=== PATIENT | male | born 1960 | race Caucasian/White ===

== ENCOUNTER 2024-01-19 16:10 | Inpatient (IN) | payer OTHER ==
[~2024-01-19] VITALS: Ht 177.8 cm; Wt 86.2 kg
[~2024-01-19 16:10] MED LIST: ALBU90OI INH; DOXY100 PO; HYDGUAL120
[2024-01-19] MEDS ORDERED: Ondansetron HCl 2 MG / ML 2ML Vial IV ONE (17:45)
[2024-01-19] MEDS ORDERED: Morphine Sulfate 4 MG/1 ML Injection IV ONE (17:45)
[2024-01-19] MEDS ORDERED: HYDROmorphone HCl/Pf 1MG SYR IV ONE ×2 (18:15→19:45)
[2024-01-19] MEDS ORDERED: Diphth,Pertuss(Acell),Tet Vac 0.5 ML VIAL IM ONE ×2 (18:15→20:55)
[2024-01-19] MEDS ORDERED: HYDROmorphone HCl/Pf 1MG SYR ONE (19:35)
[2024-01-19] MEDS ORDERED: Ketorolac Tromethamine 30mg Vial IV ONE (20:20)
[2024-01-19] MEDS ORDERED: HYDROmorphone HCl/Pf 1MG SYR IV PRN ×2 (20:20→22:50)
[2024-01-19 20:37] LABS: BASOPHILS ABSOLUTE AUTO 0.05 K/mm3 (0.00-0.23); BASOPHILS PERCENT AUTO 0 % (0-2); EOSINOPHILS ABSOLUTE AUTO 0.08 K/mm3 (0.00-0.68); EOSINOPHILS PERCENT AUTO 1 % (0-6); Hematocrit 38.8 % (37.0-53.0); Hemoglobin 12.8 g/dL (13.5-17.5); IMMATURE GRAN ABSOLUTE AUTO 0.08 K/mm3 (0.00-0.10); IMMATURE GRAN PERCENT AUTO 1 % (0-1); LYMPHOCYTES ABSOLUTE AUTO 1.31 K/mm3 (0.84-5.20); LYMPHOCYTES PERCENT AUTO 9 % (21-46); MONOCYTES ABSOLUTE AUTO 0.86 K/mm3 (0.16-1.47); MONOCYTES PERCENT AUTO 6 % (4-13); Mean Corpuscular Volume 82 fL (80-100); Mean Platelet Volume 10.4 fL (9.1-12.4); NEUTROPHILS ABSOLUTE AUTO 12.77 K/mm3 (1.96-9.15); NEUTROPHILS PERCENT AUTO 84 % (41-73); Platelet Count 183 K/mm3 (150-400); RDW Coefficient Variation 14.4 % (11.7-14.2); RDW Standard Deviation 43.2 fL (35.1-46.3); Red Blood Cell Count 4.74 M/mm3 (4.30-5.90); White Blood Cell Count 15.15 K/mm3 (4.00-11.30)
[2024-01-19 20:57] LABS: Alanine Aminotransfer (ALT/SGP 68 U/L (12-78); Albumin, Blood 3.9 g/dL (3.4-5.0); Alk Phos 62 U/L (50-136); Anion Gap 10 mmol/L (3-11); Aspartate Aminotrans (AST/SGOT 73 U/L (12-37); Bilirubin, Total 0.3 mg/dL (0.1-1.0); Blood Urea Nitrogen 12 mg/dL (8-24); Bun/Creatinine Ratio 13.2 (12.0-20.0); CO2, Blood 29 mmol/L (21-32); Calcium, Blood 9.4 mg/dL (8.5-10.1); Chloride, Blood 107 mmol/L (98-108); Creatinine, Blood 0.91 mg/dL (0.60-1.20); Ethanol (Alcohol), Blood, Med <3 mg/dL; Glomerular Filtration Rate 94 (60-); Glucose, Blood 109 mg/dL (70-99); Potassium, Blood 3.7 mmol/L (3.5-5.5); Sodium, Blood 142 mmol/L (136-145); Total Protein, Blood 7.9 g/dL (6.4-8.2)
[2024-01-19 21:15] LABS: International Normalized Ratio 1.08; Prothrombin Time Results 11.5 Sec (9.7-11.5)
[2024-01-19] MEDS ORDERED: Famotidine 20 MG Tab PO ONE (22:30)
[2024-01-19] MEDS ORDERED: Mag Hydrox/AL Hydrox/Simeth 30 ML UDC PO ONE (22:30)
[2024-01-19] MEDS ORDERED: Acetaminophen 325 MG TABLET PO PRN (22:50)
[2024-01-19] MEDS ORDERED: Ondansetron HCl 2 MG / ML 2ML Vial IV PRN (22:50)
[2024-01-19] MEDS ORDERED: HYDROcodone 5-APAP 325 TAB PO PRN (22:50)
[2024-01-19 23:05] LABS: U Amphetamine Screen Not Detected; U Barbituate Screen Not Detected; U Benzodiazapine Screen Not Detected; U Buprenorphine Screen Not Detected; U Cannabinoids Screen Not Detected; U Cocaine Screen Not Detected; U Methadone Screen Not Detected; U Methamphetamine Screen Not Detected; U Opiates Screen DETECTED; U Oxycodone Screen Not Detected; U Phencyclidine Screen Not Detected
[2024-01-20] MEDS ORDERED: Ketorolac Tromethamine 30mg Vial IV SCH
[2024-01-20 01:16] VITALS: BP 133/84
[2024-01-20] MEDS ORDERED: ADVIL PM (01:27)
--- NOTE | 2024-01-20 02:11 | NUR ---
ADMIT PT ARRIVAL TO UNIT WITH SPOUSE AT SIDE. PT VERY PAINFUL WITH MOVEMENT. R SHOULDER IN SLING, RLE SPLINTED, AND MULTIPLE R SIDED RIB FXS WITH CHEST TUBE IN PLACE. CHEST TUBE PLACED TO WALL SUCTION PER ORDERS. LUNG SOUNDS DIMINISHED TO R SIDE. PLACED ON 2L O2 VIA NC TO MAINTAIN SATS >90%. CONT BIOX IN PLACE. DILAUDID GIVEN PER ORDERS FOR PAIN MANAGEMENT. NPO UNTIL ORTHO CONSULT COMPLETE. ORIENTED TO ROOM, CALL LIGHT, AND TREATMENT PLAN. PT AND VERB AN UNDERSTANDING.
[2024-01-20 04:06] VITALS: BP 125/73
--- NOTE | 2024-01-20 05:40 | NUR ---
SHIFT SUMMARY NO ACUTE CHANGES SINCE ADMIT. CHEST TUBE TO WALL SUCTION AT -20CM. ON 2L VIA NC TO MAINTAIN SATS >90%. CONT BIOX IN PLACE. DILAUDID + TORADOL FOR PAIN MANAGEMENT. RUE REMAINS IN SLING AND RLE REMAINS SPLINTED. PER ER DOCUMENTATION, NO EXPECTED ORTHO PROCEDURES TODAY. CALL LIGHT WITHIN REACH.
[2024-01-20 07:20] VITALS: BP 129/73
--- NOTE | 2024-01-20 08:47 | NUR ---
CHEST TUBE TO WATER SEAL
[2024-01-20] MEDS ORDERED: Lidocaine 4% 1 Patch TOP SCH (09:00)
--- NOTE | 2024-01-20 12:33 | NUR ---
NO CHANGES IN WOB. SPEAKING IN FULL SENTENCES, LAUGHS w/ FAMILY w/ NO CHANGE IN WOB.
[2024-01-20 14:25] VITALS: BP 124/73
--- NOTE | 2024-01-20 18:29 | NUR ---
SHIFT SUMMARY PT HAS DONE WELL TODAY. TOLERATED CT TO WATER SEAL, OOB x 2 THIS SHIFT, & INCREASE IN PAIN w/ MOVEMENT, MOSTLY OF RUE. RLE UNCHANGED.
[2024-01-20 19:20] VITALS: BP 121/63
--- NOTE | 2024-01-20 23:32 | NUR ---
CHEST TUBE CHEST TUBE CLAMPED PER ORDERS. PT TOLERATING AT THIS TIME. PT INSTRUCTED TO NOTIFY RN OF ANY SOB, OR CHEST PAIN WITH TUBE CLAMPED.
[2024-01-21 04:57] VITALS: BP 142/78
--- NOTE | 2024-01-21 05:55 | NUR ---
SHIFT SUMMARY NO ACUTE CHANGES TO REPORT OVERNIGHT. PT HAS RESTED MOST OF THE NIGHT. CHEST TUBE CLAMPED PER ORDERS, AND PT TOLERATED T/O THE NIGHT. MAINTAINING SATS IN THE 90'S. PT SATS DROPPED TO THE UPPER 80'S A FEW TIMES, BUT EPISODES WERE VERY BRIEF, AND OVERALL PT HAS BEEN ABLE TO MAINTAIN SATS IN THE 90'S ON RA. RESP E/U, PT DENIES ANY SOB, OR CHEST PAIN. R LEG REMAINS SPLINTED AND WNL. RIGHT ARM IN SLING FOR MOST OF THE NIGHT, UNTIL THIS AM. PT STATED THAT SLING WAS CAUSING N/T IN HIS HANDS SO HE REMOVED IT. PT STATES THAT HE DOES NOT WANT TO WEAR THE SLING AT THIS TIME, AND WILL PUT IT BACK ON LATER TODAY. PT STATES THAT N/T SUBSIDED WITH THE ABSENCE OF THE SLING. VITALS ARE STABLE. PT STATES THAT HE IS ONLY PAINFUL WITH MOVEMENT AND DECLINED SCHEDULED TORDADOL. BED IN LOWEST POSITION, CALL LIGHT WITHIN REACH.
[2024-01-21 07:43] VITALS: BP 149/83
[2024-01-21 08:10] VITALS: BP 127/75
[2024-01-21] MEDS ORDERED: TraMADol HCl 50 MG Tab PO PRN (08:50)
[2024-01-21 14:21] VITALS: BP 128/71
--- NOTE | 2024-01-21 19:12 | NUR ---
SHIFT SUMMARY PT A&OX4, VSS/RA, HERMELINDA PO, VOIDING/URINAL, AMB SBA TO WC/CHAIR/BED, PAIN MANAGED WITH TORADOL AND ULTRAM/LIDO PATCHES R SHOULDER, DRESSINGS CHANGED, CT REMOVED. WILL REPORT TO ONCOMING NOC RN.
[2024-01-21 19:26] VITALS: BP 157/81
[2024-01-21] MEDS ORDERED: Calcium Carbonate 500 MG Tab Chew PO PRN (21:55)
[2024-01-22 04:11] VITALS: BP 141/80
--- NOTE | 2024-01-22 06:21 | NUR ---
SHIFT SUMMARY PT HAS RESTED T/O THE NIGHT. PT PREFERS NOT TO BE WOKEN UP FOR TORADOL IF SLEEPING. PT DENIES PAIN T/O THE NIGHT WHEN ASKED. PT DRESSING TO RIGHT ARM AND SHOULDER C/D/I. CHEST TUBE REMOVED YESTERDAY, AND SITE WNL. PT DOES NOT REPORT N/T IN EXT. PT RESP E/U, DID REQUIRE 2L O2 DURING THE NIGHT, SATS DROPPED IN THE UPPER 80'S WHILE SLEEPING. ON 2L PT ABLE TO MAINTAIN SATS IN THE 90'S WHILE SLEEPING. VITALS ARE STABLE. NO ACUTE CHANGES OVERNIGHT. BED IN LOWEST POSITION, CALL LIGHT WITHIN REACH.
[2024-01-22 07:45] VITALS: BP 148/87
[2024-01-22] MEDS ORDERED: TRAM50 PO (11:09)
--- NOTE | 2024-01-22 13:42 | NUR ---
DISCHARGE PT A&OX4, VSS/RA, HERMELINDA PO, VOIDING, PAIN MANAGED, AMB SBA/TRANSFER TO CHAIR, WORKED WITH PT/OT, IV DC'D. DC INS PROVIDED. PT AND FAM REP UNDERSTANDING THOSE INSTRUCTIONS INCLUDING FU WITH ORTHO SURGEON UP [facility] RLE&RUE, HOME HEALTH, REP HAVING ALL EQUIP NECESSARY TO GO HOME. LEFT FLOOR VIA WC WITH ALL PERSONAL POSSESSIONS INCLUDING DC PACKET AND 1 NARC SCRIPT, TO GO HOME WITH FAMILY.
== END 2024-01-22 13:40 | disposition home health service (06) | DRG 200 ==
LOC: ER 16:10 → SURS 16:11
PROVIDERS: Student in an Organized Health Care Education/Training Program; ADMIT Surgery
PROC: 0W9930Z Drainage of Right Pleural Cavity with Drainage Device, Percutaneous Approach (ICD-10-PCS; principal; 2024-01-20)
PROC: 2W38X1Z Immobilization of Right Upper Extremity using Splint (ICD-10-PCS; 2024-01-20)
PROC: 2W3QX1Z Immobilization of Right Lower Leg using Splint (ICD-10-PCS; 2024-01-20)
DX: S27.0XXA Traumatic pneumothorax, initial encounter (principal); S22.41XA Multiple fractures of ribs, right side, initial encounter for closed fracture; S82.141A Displaced bicondylar fracture of right tibia, initial encounter for closed fracture; S09.90XA Unspecified injury of head, initial encounter; S42.111A Displaced fracture of body of scapula, right shoulder, initial encounter for closed fracture; Z79.891 Long term (current) use of opiate analgesic; Z79.899 Other long term (current) drug therapy; Z79.51 Long term (current) use of inhaled steroids; Z79.2 Long term (current) use of antibiotics; V29.99XA Rider (driver) (passenger) of other motorcycle injured in unspecified traffic accident, initial encounter
CPT/HCPCS: 32551; 70450; 71045; 71260; 72125; 73030; 73200; 73562-RT; 73590; 73700; 74177; 80053; 82947; 85025; 85610; 85730; 86850; 86900; 86901; 90471; 90715; 93005; 93010; 94762; 96374-59; 96375-59; 96376; 96376-59; 97110; 97162; 97166; 97530; 97535; 99285-25; A9270; G0378; J1170; J1885; J2270; J2405; Q9967

== ENCOUNTER 2025-05-10 14:03 | Day surgery (SDC) | payer OTHER ==
[~2025-05-10 14:03] MED LIST changes: +ADVIL PM; +CEPH500 PO; +CefTRIAXone Sodium 2,000 MG in NS 100 ML IV SCH; +SULTRIDS PO; +TRAM50 PO
[2025-05-10 14:45] VITALS: BP 130/80
[2025-05-10] MEDS ORDERED: CEFTRIAXONE2 G1 IV (14:48)
[2025-05-10] MEDS ORDERED: ACET500 PO (14:49)
== END 2025-05-10 15:08 | disposition home or self-care (01) ==
LOC: ATC 14:03
DX: M86.9 Osteomyelitis, unspecified (principal); Z87.891 Personal history of nicotine dependence
CPT/HCPCS: 96365; J0696

== ENCOUNTER 2025-05-11 01:14 | Day surgery (SDC) | payer OTHER ==
[~2025-05-11 01:14] MED LIST changes: +ACET500 PO; +CEFTRIAXONE2 G1 IV
[2025-05-11 09:40] VITALS: BP 127/88
== END 2025-05-11 10:05 | disposition home or self-care (01) ==
LOC: ATC 01:14
DX: M86.661 Other chronic osteomyelitis, right tibia and fibula (principal); G47.30 Sleep apnea, unspecified; Z87.891 Personal history of nicotine dependence
CPT/HCPCS: 96365; J0696

== ENCOUNTER 2025-05-12 00:57 | Day surgery (SDC) | payer OTHER ==
[~2025-05-12 00:57] MED LIST changes: -CefTRIAXone Sodium 2,000 MG in NS 100 ML IV SCH
[2025-05-12] MEDS ORDERED: CefTRIAXone Sodium 2,000 MG in NS 100 ML IV SCH (01:00)
[2025-05-12 09:38] VITALS: BP 140/85
== END 2025-05-12 09:58 | disposition home or self-care (01) ==
LOC: ATC 00:57
DX: M86.661 Other chronic osteomyelitis, right tibia and fibula (principal); Z87.891 Personal history of nicotine dependence
CPT/HCPCS: 96365; J0696

== ENCOUNTER 2025-05-13 07:40 | Day surgery (SDC) | payer OTHER ==
[~2025-05-13 07:40] MED LIST changes: +CefTRIAXone Sodium 2,000 MG in NS 100 ML IV SCH
[2025-05-13 09:33] VITALS: BP 151/92
== END 2025-05-13 10:08 | disposition home or self-care (01) ==
LOC: ATC 07:40
DX: M86.9 Osteomyelitis, unspecified (principal); Z87.891 Personal history of nicotine dependence
CPT/HCPCS: 96365; J0696

== ENCOUNTER 2025-05-14 00:32 | Day surgery (SDC) | payer OTHER ==
[~2025-05-14 00:32] MED LIST changes: -CefTRIAXone Sodium 2,000 MG in NS 100 ML IV SCH
[2025-05-14] MEDS ORDERED: CefTRIAXone Sodium 2,000 MG in NS 100 ML IV SCH (06:00)
[2025-05-14 09:35] VITALS: BP 130/91
== END 2025-05-14 10:00 | disposition home or self-care (01) ==
LOC: ATC 00:32
DX: M86.8X6 Other osteomyelitis, lower leg (principal); Z87.891 Personal history of nicotine dependence; Z79.2 Long term (current) use of antibiotics; Z79.82 Long term (current) use of aspirin
CPT/HCPCS: 96365; J0696

== ENCOUNTER 2025-05-15 00:10 | Day surgery (SDC) | payer OTHER ==
[2025-05-15] MEDS ORDERED: CefTRIAXone Sodium 2,000 MG in NS 100 ML IV SCH (06:00)
[2025-05-15 09:21] VITALS: BP 140/88
== END 2025-05-15 09:43 | disposition home or self-care (01) ==
LOC: ATC 00:10
DX: M86.8X6 Other osteomyelitis, lower leg (principal); Z87.891 Personal history of nicotine dependence; Z79.2 Long term (current) use of antibiotics; Z79.82 Long term (current) use of aspirin
CPT/HCPCS: 96365; J0696

== ENCOUNTER 2025-05-17 01:09 | Day surgery (SDC) | payer OTHER ==
[~2025-05-17 01:09] MED LIST changes: +CefTRIAXone Sodium 2,000 MG in NS 100 ML IV SCH
[2025-05-17 09:25] VITALS: BP 142/86
== END 2025-05-17 09:52 | disposition home or self-care (01) ==
LOC: ATC 01:09
DX: M86.9 Osteomyelitis, unspecified (principal); Z87.891 Personal history of nicotine dependence; Z79.899 Other long term (current) drug therapy
CPT/HCPCS: J0696

== ENCOUNTER 2025-05-18 00:43 | Day surgery (SDC) | payer OTHER ==
[~2025-05-18 00:43] MED LIST changes: -CefTRIAXone Sodium 2,000 MG in NS 100 ML IV SCH
[2025-05-18] MEDS ORDERED: CefTRIAXone Sodium 2,000 MG in NS 100 ML IV SCH (01:00)
[2025-05-18 09:39] VITALS: BP 131/77
== END 2025-05-18 10:03 | disposition home or self-care (01) ==
LOC: ATC 00:43
DX: M86.9 Osteomyelitis, unspecified (principal); Z87.891 Personal history of nicotine dependence
CPT/HCPCS: 96365; J0696

== ENCOUNTER 2025-05-20 01:23 | Day surgery (SDC) | payer OTHER ==
[~2025-05-20 01:23] MED LIST changes: +CefTRIAXone Sodium 2,000 MG in NS 100 ML IV SCH
[2025-05-20 09:36] VITALS: BP 143/86
== END 2025-05-20 09:57 | disposition home or self-care (01) ==
LOC: ATC 01:23
DX: M86.661 Other chronic osteomyelitis, right tibia and fibula (principal); Z87.891 Personal history of nicotine dependence
CPT/HCPCS: 96365; J0696

== ENCOUNTER 2025-05-21 00:58 | Day surgery (SDC) | payer OTHER ==
[~2025-05-21 00:58] MED LIST changes: -CefTRIAXone Sodium 2,000 MG in NS 100 ML IV SCH
[2025-05-21] MEDS ORDERED: CefTRIAXone Sodium 2,000 MG in NS 100 ML IV SCH (06:00)
[2025-05-21 09:41] VITALS: BP 130/93
== END 2025-05-21 09:55 | disposition home or self-care (01) ==
LOC: ATC 00:58
DX: M86.8X6 Other osteomyelitis, lower leg (principal); Z87.891 Personal history of nicotine dependence; Z79.2 Long term (current) use of antibiotics; Z79.82 Long term (current) use of aspirin; Z79.899 Other long term (current) drug therapy
CPT/HCPCS: 96365; J0696

== ENCOUNTER 2025-05-22 07:29 | Day surgery (SDC) | payer OTHER ==
[~2025-05-22 07:29] MED LIST changes: +CefTRIAXone Sodium 2,000 MG in NS 100 ML IV SCH
[2025-05-22 09:26] VITALS: BP 153/101
== END 2025-05-22 09:49 | disposition home or self-care (01) ==
LOC: ATC 07:29
DX: M86.8X6 Other osteomyelitis, lower leg (principal); Z87.891 Personal history of nicotine dependence; Z79.2 Long term (current) use of antibiotics; Z79.82 Long term (current) use of aspirin; Z79.899 Other long term (current) drug therapy
CPT/HCPCS: 96365; J0696

== ENCOUNTER 2025-05-23 00:10 | Day surgery (SDC) | payer OTHER ==
[~2025-05-23 00:10] MED LIST changes: -CefTRIAXone Sodium 2,000 MG in NS 100 ML IV SCH
[2025-05-23] MEDS ORDERED: CefTRIAXone Sodium 2,000 MG in NS 100 ML IV SCH (06:00)
[2025-05-23 09:49] VITALS: BP 126/89
[2025-05-23 11:34] LABS: BASOPHILS ABSOLUTE AUTO 0.04 K/mm3 (0.00-0.23); BASOPHILS PERCENT AUTO 1 % (0-2); EOSINOPHILS ABSOLUTE AUTO 0.31 K/mm3 (0.00-0.68); EOSINOPHILS PERCENT AUTO 5 % (0-6); Hematocrit 36.3 % (37.0-53.0); Hemoglobin 11.9 g/dL (13.5-17.5); IMMATURE GRAN ABSOLUTE AUTO 0.01 K/mm3 (0.00-0.10); IMMATURE GRAN PERCENT AUTO 0 % (0-1); LYMPHOCYTES ABSOLUTE AUTO 1.85 K/mm3 (0.84-5.20); LYMPHOCYTES PERCENT AUTO 31 % (21-46); MONOCYTES ABSOLUTE AUTO 0.68 K/mm3 (0.16-1.47); MONOCYTES PERCENT AUTO 11 % (4-13); Mean Corpuscular HGB Conc 32.8 g/dL (31.5-36.5); Mean Corpuscular Volume 81 fL (80-100); NEUTROPHILS ABSOLUTE AUTO 3.16 K/mm3 (1.96-9.15); NEUTROPHILS PERCENT AUTO 52 % (41-73); NRBC ABSOLUTE 0.00 K/mm3 (0.00-0.02); NRBC Auto 0.0 /100 WBC (0.0-0.2); Platelet Count 180 K/mm3 (150-400); RDW Coefficient Variation 14.6 % (11.7-14.2); RDW Standard Deviation 42.9 fL (35.1-46.3)
[2025-05-23 12:07] LABS: Alanine Aminotransfer (ALT/SGP 39.0 U/L (12-78); Albumin, Blood 3.5 g/dL (3.4-5.0); Albumin/Globulin Ratio 0.8 (0.8-1.8); Anion Gap 6.0 mmol/L (3-11); Aspartate Aminotrans (AST/SGOT 27.0 U/L (12-37); Bilirubin, Total 0.5 mg/dL (0.1-1.0); Blood Urea Nitrogen 8.0 mg/dL (8-24); C-REACTIVE PROTEIN, EXT RANGE 7.06 mg/dL (0.000-0.300); CO2, Blood 31.0 mmol/L (21-32); Calcium, Blood 9.8 mg/dL (8.5-10.1); Chloride, Blood 101.0 mmol/L (98-108); Creatinine, Blood 0.89 mg/dL (0.60-1.20); Globulin, Blood 4.4 g/dL (2.2-4.0); Glucose, Blood 93.0 mg/dL (70-99); Potassium, Blood 3.4 mmol/L (3.5-5.5); Sodium, Blood 135.0 mmol/L (136-145); Total Protein, Blood 7.9 g/dL (6.4-8.2)
== END 2025-05-23 10:17 | disposition home or self-care (01) ==
LOC: ATC 00:10
PROVIDERS: Internal Medicine
DX: M86.661 Other chronic osteomyelitis, right tibia and fibula (principal); Z87.891 Personal history of nicotine dependence
CPT/HCPCS: 80053; 85025; 86140; 96365; J0696

== ENCOUNTER 2025-05-24 09:31 | Day surgery (SDC) | payer OTHER ==
[~2025-05-24 09:31] MED LIST changes: +CefTRIAXone Sodium 2,000 MG in NS 100 ML IV SCH
[2025-05-24 09:42] VITALS: BP 155/87
== END 2025-05-24 10:04 | disposition home or self-care (01) ==
LOC: ATC 09:31
DX: M86.661 Other chronic osteomyelitis, right tibia and fibula (principal); G47.30 Sleep apnea, unspecified; Z87.891 Personal history of nicotine dependence
CPT/HCPCS: 96365; J0696

== ENCOUNTER 2025-05-25 00:50 | Day surgery (SDC) | payer OTHER ==
[~2025-05-25 00:50] MED LIST changes: -CefTRIAXone Sodium 2,000 MG in NS 100 ML IV SCH
[2025-05-25] MEDS ORDERED: CefTRIAXone Sodium 2,000 MG in NS 100 ML IV SCH (06:00)
[2025-05-25 09:34] VITALS: BP 134/81
== END 2025-05-25 10:00 | disposition home or self-care (01) ==
LOC: ATC 00:50
DX: M86.661 Other chronic osteomyelitis, right tibia and fibula (principal)
CPT/HCPCS: 96365; J0696

== ENCOUNTER 2025-05-26 03:17 | Day surgery (SDC) | payer OTHER ==
[2025-05-26] MEDS ORDERED: CefTRIAXone Sodium 2,000 MG in NS 100 ML IV SCH (06:00)
[2025-05-26 15:33] VITALS: BP 150/77
== END 2025-05-26 15:55 | disposition home or self-care (01) ==
LOC: ATC 03:17
DX: M86.8X6 Other osteomyelitis, lower leg (principal); Z87.891 Personal history of nicotine dependence; Z79.2 Long term (current) use of antibiotics; Z79.82 Long term (current) use of aspirin; Z79.899 Other long term (current) drug therapy
CPT/HCPCS: 96365; J0696

== ENCOUNTER 2025-05-27 08:08 | Day surgery (SDC) | payer OTHER ==
[~2025-05-27 08:08] MED LIST changes: +CefTRIAXone Sodium 2,000 MG in NS 100 ML IV SCH
[2025-05-27 09:49] VITALS: BP 141/90
== END 2025-05-27 10:11 | disposition home or self-care (01) ==
LOC: ATC 08:08
DX: M86.8X8 Other osteomyelitis, other site (principal); Z87.891 Personal history of nicotine dependence
CPT/HCPCS: 96365; J0696

== ENCOUNTER 2025-05-28 01:41 | Day surgery (SDC) | payer OTHER ==
[2025-05-28 09:40] VITALS: BP 158/99
== END 2025-05-28 10:02 | disposition home or self-care (01) ==
LOC: ATC 01:41
DX: M86.9 Osteomyelitis, unspecified (principal); T84.622A Infection and inflammatory reaction due to internal fixation device of right tibia, initial encounter; S82.141D Displaced bicondylar fracture of right tibia, subsequent encounter for closed fracture with routine healing; G47.30 Sleep apnea, unspecified; Y79.2 Prosthetic and other implants, materials and accessory orthopedic devices associated with adverse incidents; Z79.01 Long term (current) use of anticoagulants; Z87.891 Personal history of nicotine dependence
CPT/HCPCS: 96365; J0696

== ENCOUNTER 2025-05-29 00:31 | Day surgery (SDC) | payer OTHER ==
[~2025-05-29 00:31] MED LIST changes: -CefTRIAXone Sodium 2,000 MG in NS 100 ML IV SCH
[2025-05-29] MEDS ORDERED: CefTRIAXone Sodium 2,000 MG in NS 100 ML IV SCH (01:00)
[2025-05-29 09:40] VITALS: BP 152/94
== END 2025-05-29 10:05 | disposition home or self-care (01) ==
LOC: ATC 00:31
DX: M86.8X6 Other osteomyelitis, lower leg (principal); G47.30 Sleep apnea, unspecified; Z87.891 Personal history of nicotine dependence; Z79.2 Long term (current) use of antibiotics; Z79.82 Long term (current) use of aspirin; Z79.899 Other long term (current) drug therapy
CPT/HCPCS: 96365; J0696

== ENCOUNTER 2025-05-30 03:53 | Day surgery (SDC) | payer OTHER ==
[~2025-05-30 03:53] MED LIST changes: +CefTRIAXone Sodium 2,000 MG in NS 100 ML IV SCH
[2025-05-30 09:50] VITALS: BP 134/81
[2025-05-30 10:12] LABS: BASOPHILS ABSOLUTE AUTO 0.06 K/mm3 (0.00-0.23); BASOPHILS PERCENT AUTO 1 % (0-2); EOSINOPHILS ABSOLUTE AUTO 0.37 K/mm3 (0.00-0.68); EOSINOPHILS PERCENT AUTO 6 % (0-6); Hematocrit 37.1 % (37.0-53.0); Hemoglobin 12.0 g/dL (13.5-17.5); IMMATURE GRAN ABSOLUTE AUTO 0.02 K/mm3 (0.00-0.10); IMMATURE GRAN PERCENT AUTO 0 % (0-1); LYMPHOCYTES ABSOLUTE AUTO 1.97 K/mm3 (0.84-5.20); LYMPHOCYTES PERCENT AUTO 33 % (21-46); MONOCYTES ABSOLUTE AUTO 0.43 K/mm3 (0.16-1.47); MONOCYTES PERCENT AUTO 7 % (4-13); Mean Corpuscular HGB Conc 32.3 g/dL (31.5-36.5); Mean Corpuscular Volume 82 fL (80-100); NEUTROPHILS ABSOLUTE AUTO 3.05 K/mm3 (1.96-9.15); NEUTROPHILS PERCENT AUTO 52 % (41-73); NRBC ABSOLUTE 0.00 K/mm3 (0.00-0.02); NRBC Auto 0.0 /100 WBC (0.0-0.2); Platelet Count 239 K/mm3 (150-400); RDW Coefficient Variation 14.6 % (11.7-14.2); RDW Standard Deviation 42.6 fL (35.1-46.3)
[2025-05-30 10:35] LABS: Alanine Aminotransfer (ALT/SGP 35.0 U/L (12-78); Albumin, Blood 3.6 g/dL (3.4-5.0); Albumin/Globulin Ratio 0.8 (0.8-1.8); Anion Gap 8.0 mmol/L (3-11); Aspartate Aminotrans (AST/SGOT 22.0 U/L (12-37); Bilirubin, Total 0.3 mg/dL (0.1-1.0); Blood Urea Nitrogen 8.0 mg/dL (8-24); C-REACTIVE PROTEIN, EXT RANGE 0.685 mg/dL (0.000-0.300); CO2, Blood 28.0 mmol/L (21-32); Calcium, Blood 9.4 mg/dL (8.5-10.1); Chloride, Blood 107.0 mmol/L (98-108); Creatinine, Blood 0.95 mg/dL (0.60-1.20); Globulin, Blood 4.3 g/dL (2.2-4.0); Glucose, Blood 86.0 mg/dL (70-99); Potassium, Blood 3.7 mmol/L (3.5-5.5); Sodium, Blood 139.0 mmol/L (136-145); Total Protein, Blood 7.9 g/dL (6.4-8.2)
== END 2025-05-30 10:12 | disposition home or self-care (01) ==
LOC: ATC 03:53
PROVIDERS: Internal Medicine
DX: M86.8X6 Other osteomyelitis, lower leg (principal); G47.30 Sleep apnea, unspecified; Z87.891 Personal history of nicotine dependence; Z79.2 Long term (current) use of antibiotics; Z79.82 Long term (current) use of aspirin; Z79.899 Other long term (current) drug therapy
CPT/HCPCS: 80053; 85025; 86140; 96365; J0696

== ENCOUNTER 2025-05-31 00:44 | Day surgery (SDC) | payer OTHER ==
[~2025-05-31 00:44] MED LIST changes: -CefTRIAXone Sodium 2,000 MG in NS 100 ML IV SCH
[2025-05-31] MEDS ORDERED: CefTRIAXone Sodium 2,000 MG in NS 100 ML IV SCH (01:00)
[2025-05-31 09:30] VITALS: BP 148/90
== END 2025-05-31 09:58 | disposition home or self-care (01) ==
LOC: ATC 00:44
DX: M86.661 Other chronic osteomyelitis, right tibia and fibula (principal); Z87.891 Personal history of nicotine dependence
CPT/HCPCS: 96365; J0696

== ENCOUNTER 2025-06-01 02:25 | Day surgery (SDC) | payer OTHER ==
[2025-06-01] MEDS ORDERED: CefTRIAXone Sodium 2,000 MG in NS 100 ML IV SCH (06:00)
[2025-06-01 09:47] VITALS: BP 131/89
== END 2025-06-01 10:09 | disposition home or self-care (01) ==
LOC: ATC 02:25
DX: M86.661 Other chronic osteomyelitis, right tibia and fibula (principal); Z87.891 Personal history of nicotine dependence
CPT/HCPCS: 96365; J0696

== ENCOUNTER 2025-06-02 00:05 | Day surgery (SDC) | payer OTHER ==
[2025-06-02] MEDS ORDERED: CefTRIAXone Sodium 2,000 MG in NS 100 ML IV SCH (01:00)
[2025-06-02 09:44] VITALS: BP 141/81
== END 2025-06-02 10:06 | disposition home or self-care (01) ==
LOC: ATC 00:05
DX: M86.8X6 Other osteomyelitis, lower leg (principal); G47.30 Sleep apnea, unspecified; Z87.891 Personal history of nicotine dependence; Z79.2 Long term (current) use of antibiotics; Z79.82 Long term (current) use of aspirin; Z79.899 Other long term (current) drug therapy
CPT/HCPCS: 96365; J0696

== ENCOUNTER 2025-06-03 00:43 | Day surgery (SDC) | payer OTHER ==
[2025-06-03] MEDS ORDERED: CefTRIAXone Sodium 2,000 MG in NS 100 ML IV SCH (01:00)
[2025-06-03 09:44] VITALS: BP 154/79
== END 2025-06-03 10:06 | disposition home or self-care (01) ==
LOC: ATC 00:43
DX: M86.9 Osteomyelitis, unspecified (principal); Z87.891 Personal history of nicotine dependence; Z79.899 Other long term (current) drug therapy
CPT/HCPCS: 96365; J0696

== ENCOUNTER 2025-06-04 02:21 | Day surgery (SDC) | payer OTHER ==
[~2025-06-04 02:21] MED LIST changes: +CefTRIAXone Sodium 2,000 MG in NS 100 ML IV SCH
[2025-06-04 09:33] VITALS: BP 155/95
== END 2025-06-04 09:55 | disposition home or self-care (01) ==
LOC: ATC 02:21
DX: M86.9 Osteomyelitis, unspecified (principal); Z87.891 Personal history of nicotine dependence; Z79.899 Other long term (current) drug therapy
CPT/HCPCS: 96365; J0696

== ENCOUNTER 2025-06-05 01:54 | Day surgery (SDC) | payer OTHER ==
[~2025-06-05 01:54] MED LIST changes: -CefTRIAXone Sodium 2,000 MG in NS 100 ML IV SCH
[2025-06-05] MEDS ORDERED: CefTRIAXone Sodium 2,000 MG in NS 100 ML IV SCH (06:00)
[2025-06-05 09:20] VITALS: BP 150/94
== END 2025-06-05 09:45 | disposition home or self-care (01) ==
LOC: ATC 01:54
DX: M86.9 Osteomyelitis, unspecified (principal); T84.7XXA Infection and inflammatory reaction due to other internal orthopedic prosthetic devices, implants and grafts, initial encounter; S82.141D Displaced bicondylar fracture of right tibia, subsequent encounter for closed fracture with routine healing; G47.30 Sleep apnea, unspecified; V29.99XD Rider (driver) (passenger) of other motorcycle injured in unspecified traffic accident, subsequent encounter; Y79.2 Prosthetic and other implants, materials and accessory orthopedic devices associated with adverse incidents; Z79.82 Long term (current) use of aspirin; Z79.899 Other long term (current) drug therapy; Z87.891 Personal history of nicotine dependence; Z88.0 Allergy status to penicillin; Z88.1 Allergy status to other antibiotic agents
CPT/HCPCS: 96365; J0696

== ENCOUNTER 2025-06-06 01:31 | Day surgery (SDC) | payer OTHER ==
[2025-06-06] MEDS ORDERED: CefTRIAXone Sodium 2,000 MG in NS 100 ML IV SCH (06:00)
[2025-06-06 09:35] VITALS: BP 131/87
[2025-06-06 10:11] LABS: BASOPHILS ABSOLUTE AUTO 0.05 K/mm3 (0.00-0.23); BASOPHILS PERCENT AUTO 1 % (0-2); EOSINOPHILS ABSOLUTE AUTO 0.32 K/mm3 (0.00-0.68); EOSINOPHILS PERCENT AUTO 5 % (0-6); Hematocrit 38.4 % (37.0-53.0); Hemoglobin 12.4 g/dL (13.5-17.5); IMMATURE GRAN ABSOLUTE AUTO 0.02 K/mm3 (0.00-0.10); IMMATURE GRAN PERCENT AUTO 0 % (0-1); LYMPHOCYTES ABSOLUTE AUTO 2.14 K/mm3 (0.84-5.20); LYMPHOCYTES PERCENT AUTO 34 % (21-46); MONOCYTES ABSOLUTE AUTO 0.47 K/mm3 (0.16-1.47); MONOCYTES PERCENT AUTO 7 % (4-13); Mean Corpuscular HGB Conc 32.3 g/dL (31.5-36.5); Mean Corpuscular Volume 82 fL (80-100); NEUTROPHILS ABSOLUTE AUTO 3.33 K/mm3 (1.96-9.15); NEUTROPHILS PERCENT AUTO 53 % (41-73); NRBC ABSOLUTE 0.00 K/mm3 (0.00-0.02); NRBC Auto 0.0 /100 WBC (0.0-0.2); Platelet Count 200 K/mm3 (150-400); RDW Coefficient Variation 15.0 % (11.7-14.2); RDW Standard Deviation 44.5 fL (35.1-46.3)
[2025-06-06 10:43] LABS: Alanine Aminotransfer (ALT/SGP 26.0 U/L (12-78); Albumin, Blood 3.8 g/dL (3.4-5.0); Albumin/Globulin Ratio 1.0 (0.8-1.8); Anion Gap 8.0 mmol/L (3-11); Aspartate Aminotrans (AST/SGOT 18.0 U/L (12-37); Bilirubin, Total 0.4 mg/dL (0.1-1.0); Blood Urea Nitrogen 8.0 mg/dL (8-24); C-REACTIVE PROTEIN, EXT RANGE 0.393 mg/dL (0.000-0.300); CO2, Blood 29.0 mmol/L (21-32); Calcium, Blood 9.4 mg/dL (8.5-10.1); Chloride, Blood 106.0 mmol/L (98-108); Creatinine, Blood 0.93 mg/dL (0.60-1.20); Globulin, Blood 3.9 g/dL (2.2-4.0); Glucose, Blood 80.0 mg/dL (70-99); Potassium, Blood 3.8 mmol/L (3.5-5.5); Sodium, Blood 139.0 mmol/L (136-145); Total Protein, Blood 7.7 g/dL (6.4-8.2)
== END 2025-06-06 10:20 | disposition home or self-care (01) ==
LOC: ATC 01:31
PROVIDERS: Internal Medicine
DX: M86.661 Other chronic osteomyelitis, right tibia and fibula (principal); Z87.891 Personal history of nicotine dependence
CPT/HCPCS: 80053; 85025; 86140; 96365; J0696

== ENCOUNTER 2025-06-07 01:46 | Day surgery (SDC) | payer OTHER ==
[~2025-06-07 01:46] MED LIST changes: +CefTRIAXone Sodium 2,000 MG in NS 100 ML IV SCH
[2025-06-07 09:36] VITALS: BP 133/86
== END 2025-06-07 10:14 | disposition home or self-care (01) ==
LOC: ATC 01:46
DX: M86.661 Other chronic osteomyelitis, right tibia and fibula (principal); Z87.891 Personal history of nicotine dependence
CPT/HCPCS: 96365; J0696

== ENCOUNTER 2025-06-08 00:19 | Day surgery (SDC) | payer OTHER ==
[~2025-06-08 00:19] MED LIST changes: -CefTRIAXone Sodium 2,000 MG in NS 100 ML IV SCH
[2025-06-08] MEDS ORDERED: CefTRIAXone Sodium 2,000 MG in NS 100 ML IV SCH (01:00)
[2025-06-08 09:40] VITALS: BP 136/81
== END 2025-06-08 10:02 | disposition home or self-care (01) ==
LOC: ATC 00:19
DX: M86.661 Other chronic osteomyelitis, right tibia and fibula (principal); Z87.891 Personal history of nicotine dependence
CPT/HCPCS: 96365; J0696

== ENCOUNTER 2025-06-09 02:50 | Day surgery (SDC) | payer OTHER ==
[~2025-06-09 02:50] MED LIST changes: +CefTRIAXone Sodium 2,000 MG in NS 100 ML IV SCH
[2025-06-09 09:35] VITALS: BP 138/94
== END 2025-06-09 10:01 | disposition home or self-care (01) ==
LOC: ATC 02:50
DX: M86.661 Other chronic osteomyelitis, right tibia and fibula (principal); Z87.891 Personal history of nicotine dependence
CPT/HCPCS: 96365; 99211; J0696

== ENCOUNTER 2025-06-10 01:12 | Day surgery (SDC) | payer OTHER ==
[~2025-06-10 01:12] MED LIST changes: -CefTRIAXone Sodium 2,000 MG in NS 100 ML IV SCH
[2025-06-10] MEDS ORDERED: CefTRIAXone Sodium 2,000 MG in NS 100 ML IV SCH (06:00)
[2025-06-10 09:35] VITALS: BP 127/93
== END 2025-06-10 09:59 | disposition home or self-care (01) ==
LOC: ATC 01:12
DX: M86.661 Other chronic osteomyelitis, right tibia and fibula (principal); Z87.891 Personal history of nicotine dependence
CPT/HCPCS: 96365; 99211; J0696

== ENCOUNTER 2025-06-11 00:09 | Day surgery (SDC) | payer OTHER ==
[2025-06-11] MEDS ORDERED: CefTRIAXone Sodium 2,000 MG in NS 100 ML IV SCH (01:00)
[2025-06-11 09:39] VITALS: BP 146/93
== END 2025-06-11 09:58 | disposition home or self-care (01) ==
LOC: ATC 00:09
DX: M86.661 Other chronic osteomyelitis, right tibia and fibula (principal)
CPT/HCPCS: 96365; J0696

== ENCOUNTER 2025-06-12 01:29 | Day surgery (SDC) | payer OTHER ==
[~2025-06-12 01:29] MED LIST changes: +CefTRIAXone Sodium 2,000 MG in NS 100 ML IV SCH
[2025-06-12 09:34] VITALS: BP 147/97
== END 2025-06-12 09:51 | disposition home or self-care (01) ==
LOC: ATC 01:29
DX: M86.661 Other chronic osteomyelitis, right tibia and fibula (principal)
CPT/HCPCS: 96365; J0696

== ENCOUNTER 2025-06-13 01:00 | Day surgery (SDC) | payer OTHER ==
[2025-06-13 09:50] VITALS: BP 118/94
[2025-06-13 12:25] LABS: BASOPHILS ABSOLUTE AUTO 0.05 K/mm3 (0.00-0.23); BASOPHILS PERCENT AUTO 1 % (0-2); EOSINOPHILS ABSOLUTE AUTO 0.24 K/mm3 (0.00-0.68); EOSINOPHILS PERCENT AUTO 4 % (0-6); Hematocrit 40.6 % (37.0-53.0); Hemoglobin 13.1 g/dL (13.5-17.5); IMMATURE GRAN ABSOLUTE AUTO 0.02 K/mm3 (0.00-0.10); IMMATURE GRAN PERCENT AUTO 0 % (0-1); LYMPHOCYTES ABSOLUTE AUTO 2.18 K/mm3 (0.84-5.20); LYMPHOCYTES PERCENT AUTO 37 % (21-46); MONOCYTES ABSOLUTE AUTO 0.47 K/mm3 (0.16-1.47); MONOCYTES PERCENT AUTO 8 % (4-13); Mean Corpuscular HGB Conc 32.3 g/dL (31.5-36.5); Mean Corpuscular Volume 83 fL (80-100); NEUTROPHILS ABSOLUTE AUTO 3.02 K/mm3 (1.96-9.15); NEUTROPHILS PERCENT AUTO 51 % (41-73); NRBC ABSOLUTE 0.00 K/mm3 (0.00-0.02); NRBC Auto 0.0 /100 WBC (0.0-0.2); Platelet Count 161 K/mm3 (150-400); RDW Coefficient Variation 14.8 % (11.7-14.2); RDW Standard Deviation 45.0 fL (35.1-46.3)
[2025-06-13 12:49] LABS: Alanine Aminotransfer (ALT/SGP 26.0 U/L (12-78); Albumin, Blood 4.1 g/dL (3.4-5.0); Albumin/Globulin Ratio 1.0 (0.8-1.8); Anion Gap 6.0 mmol/L (3-11); Aspartate Aminotrans (AST/SGOT 18.0 U/L (12-37); Bilirubin, Total 0.4 mg/dL (0.1-1.0); Blood Urea Nitrogen 14.0 mg/dL (8-24); C-REACTIVE PROTEIN, EXT RANGE 0.541 mg/dL (0.000-0.300); CO2, Blood 29.0 mmol/L (21-32); Calcium, Blood 9.8 mg/dL (8.5-10.1); Chloride, Blood 106.0 mmol/L (98-108); Creatinine, Blood 0.97 mg/dL (0.60-1.20); Globulin, Blood 4.1 g/dL (2.2-4.0); Glucose, Blood 72.0 mg/dL (70-99); Potassium, Blood 3.8 mmol/L (3.5-5.5); Sodium, Blood 137.0 mmol/L (136-145); Total Protein, Blood 8.2 g/dL (6.4-8.2)
== END 2025-06-13 10:14 | disposition home or self-care (01) ==
LOC: ATC 01:00
PROVIDERS: Internal Medicine
DX: M86.9 Osteomyelitis, unspecified (principal); S82.141D Displaced bicondylar fracture of right tibia, subsequent encounter for closed fracture with routine healing; G47.30 Sleep apnea, unspecified; Z79.82 Long term (current) use of aspirin; Z79.2 Long term (current) use of antibiotics; Z79.899 Other long term (current) drug therapy; Z87.891 Personal history of nicotine dependence
CPT/HCPCS: 36591; 80053; 85025; 86140; 96365; J0696

== ENCOUNTER 2025-06-14 01:06 | Day surgery (SDC) | payer OTHER ==
[2025-06-14 09:40] VITALS: BP 138/79
== END 2025-06-14 10:04 | disposition home or self-care (01) ==
LOC: ATC 01:06
DX: M86.661 Other chronic osteomyelitis, right tibia and fibula (principal); Z87.891 Personal history of nicotine dependence
CPT/HCPCS: 96365; J0696

== ENCOUNTER 2025-06-15 01:44 | Day surgery (SDC) | payer OTHER ==
[2025-06-15 09:35] VITALS: BP 132/91
== END 2025-06-15 10:02 | disposition home or self-care (01) ==
LOC: ATC 01:44
DX: M86.8X6 Other osteomyelitis, lower leg (principal); G47.30 Sleep apnea, unspecified; Z87.891 Personal history of nicotine dependence; Z79.2 Long term (current) use of antibiotics; Z79.82 Long term (current) use of aspirin; Z79.899 Other long term (current) drug therapy
CPT/HCPCS: 96365; J0696

== ENCOUNTER 2025-06-16 02:16 | Day surgery (SDC) | payer OTHER ==
[~2025-06-16 02:16] MED LIST changes: -CefTRIAXone Sodium 2,000 MG in NS 100 ML IV SCH
[2025-06-16] MEDS ORDERED: CefTRIAXone Sodium 2,000 MG in NS 100 ML IV SCH (06:00)
[2025-06-16 15:19] VITALS: BP 133/87
== END 2025-06-16 15:57 | disposition home or self-care (01) ==
LOC: ATC 02:16
DX: M86.661 Other chronic osteomyelitis, right tibia and fibula (principal); Z87.891 Personal history of nicotine dependence
CPT/HCPCS: 96365; J0696